=== PATIENT | male | born 1945 | race Caucasian/White ===

== ENCOUNTER 2017-09-01 22:00 | Inpatient (IN) ==
[2017-09-01] MEDS ORDERED: ASPIRIN 325 MG TABLET PO STA (22:20)
[2017-09-01] MEDS ORDERED: DILTIAZEM 50 MG/10 ML VIAL IV STA (22:20)
[2017-09-01] MEDS ORDERED: ALBUTEROL/IPRATROPIUM 3 ML NEB RESP TX STA (22:20)
[2017-09-01] MEDS ORDERED: NITROGLYCERIN 2% OINT 1 INCH/GM PACK TOP STA (22:20)
[2017-09-01] MEDS ORDERED: ONDANSETRON 4 MG/2 ML VIAL IV STA (22:20)
[2017-09-01] MEDS ORDERED: ONDANSETRON 4 MG/2 ML VIAL ONE (22:36)
[2017-09-01] MEDS ORDERED: NITROGLYCERIN 2% OINT 1 INCH/GM PACK TOP ONE (22:36)
[2017-09-01] MEDS ORDERED: ASPIRIN 325 MG TABLET ONE (22:37)
[2017-09-01] MEDS ORDERED: DILTIAZEM 50 MG/10 ML VIAL IV ONE (22:37)
[2017-09-01] MEDS ORDERED: FUROSEMIDE 40 MG/4 ML VIAL IV STA (22:44)
[2017-09-01] MEDS ORDERED: FUROSEMIDE 100 MG/10 ML VIAL ONE (23:12)
[2017-09-01 23:23] LABS: Basophils % 0.5 % (0.0-0.8); Eosinophils % 0.1 % (0.00-10.9); Hematocrit 45.7 VOL% (42.0-52.0); Hemoglobin 15.2 GM/DL (14.0-18.0); Immature Granulocytes % 0.7 %; Immature Granulocytes Absolute 0.06 #; Lymphocytes # 0.8 10*3/uL (1.4-4.0); Lymphocytes % 9.7 % (21.2-54.2); Mean Corpuscular HGB Conc 33.3 GM/DL (32-36); Mean Corpuscular Hemoglobin 30 PG (27-34); Mean Corpuscular Volume 90.7 FL (87-102); Mean Platelet Volume 11.1 FL (9.6-12.0); Monocytes # 0.7 10*3/uL (0.11-0.8); Monocytes % 8.9 % (1.7-12.7); Neutrophils # 6.6 10*3/uL (1.4-7.4); Neutrophils % 80.1 % (38.7-73.9); Platelet Count 193 T/CUMM (130-400); Red Blood Count 5.04 MC/CUMM (3.8-5.5); Red Cell Distribution Width 14.7 % (9.3-17.3); White Blood Count 8.2 T/CUMM (4-12)
[2017-09-01 23:33] LABS: INR 1.2; PT Patient Result 12.1 SECS; Partial Thromboplastin Time 27.3 SECS (0-40)
[2017-09-02 00:01] LABS: Alanine Aminotransferase 37 U/L (16-61); Albumin 3.4 G/DL (3.4-5.0); Alkaline Phosphatase 87 U/L (45-117); Aspartate Amino Transferase 62 U/L (0-37); Blood Urea Nitrogen 18 MG/DL (7-18); Calcium 8.3 MG/DL (8.5-10.1); Glucose 238 MG/DL (74-106); Osmolality,Calculated 277.2 MOS/KG (273-304); Potassium 5.3 MMOL/L (3.5-5.1); Sodium 134 MMOL/L (136-145); Total Protein 6.8 G/DL (6.4-8.3)
[2017-09-02 00:02] LABS: Troponin I Only 0.065 NG/ML (0.00-0.045)
[2017-09-02] MEDS ORDERED: SODIUM CHLORIDE 0.9% 0 ML IV ONE (00:12)
[2017-09-02] MEDS ORDERED: DILTIAZEM 100 MG VIAL.ADD IV ONE (00:12)
[2017-09-02] MEDS ORDERED: SODIUM CHLORIDE 0.9% 100 ML IV ONE (00:13)
[2017-09-02] MEDS: DILTIAZEM INJ 100 MG in SODIUM CHLORIDE 0.9% 100 ML IV SCH (00:22)
[2017-09-02 00:39] LABS: Apearance,Urine CLEAR (Clear); Bilirubin,Urine Negative (Negative); Blood, Urine Negative (Negative); Glucose,Urine (UA) 150 mg/dL (Negative); Hyaline Casts,Urine 7 /LPF (0-3); Ketones,Urine 5 mg/dL (Negative); Mucus,Urine Occasional /LPF (Occasional); Nitrite,Urine Negative (Negative); Protein,Urine 100 MG/DL; RBC,Urine 1 /HPF (0-4); Squamous Epithelial Cell,Urine Occasional /HPF (0-10); Urine Color Yellow (Yellow); Urine Specific Gravity 1.009 (1.001-1.035); Urine Urobilinogen < 2.0 EU/DL (0.2-1.0); WBC,Urine 2 /HPF (0-6)
[2017-09-02] MEDS ORDERED: DEXTROSE 50% 25 GM/50 ML VIAL IV PRN (02:10)
[2017-09-02] MEDS ORDERED: GLUCAGON 1 MG VIAL IM PRN (02:10)
[2017-09-02] MEDS ORDERED: ONDANSETRON 4 MG/2 ML VIAL IV PRN (02:10)
[2017-09-02 05:44] LABS: Basophils % 0.3 % (0.0-0.8); Eosinophils % 0.4 % (0.00-10.9); Hematocrit 41.8 VOL% (42.0-52.0); Hemoglobin 14.2 GM/DL (14.0-18.0); Immature Granulocytes % 0.6 %; Immature Granulocytes Absolute 0.04 #; Lymphocytes % 14.3 % (21.2-54.2); Mean Corpuscular Hemoglobin 30 PG (27-34); Mean Corpuscular Volume 88.6 FL (87-102); Mean Platelet Volume 10.3 FL (9.6-12.0); Monocytes # 0.8 10*3/uL (0.11-0.8); Monocytes % 11.5 % (1.7-12.7); Neutrophils # 4.9 10*3/uL (1.4-7.4); Neutrophils % 72.9 % (38.7-73.9); Platelet Count 227 T/CUMM (130-400); Red Blood Count 4.72 MC/CUMM (3.8-5.5); Red Cell Distribution Width 14.6 % (9.3-17.3); White Blood Count 6.7 T/CUMM (4-12)
[2017-09-02 06:13] LABS: Troponin I Only 0.077 NG/ML (0.00-0.045)
[2017-09-02 06:30] LABS: Blood Urea Nitrogen 17 MG/DL (7-18); Calcium 8.1 MG/DL (8.5-10.1); Glucose 170 MG/DL (74-106); Osmolality,Calculated 278.8 MOS/KG (273-304); Sodium 137 MMOL/L (136-145)
[2017-09-02] MEDS: NITROGLYCERIN 2% OINT 1 INCH/GM PACK TOP SCH ×3 (06:32→17:19)
[2017-09-02] MEDS: INSULIN REGULAR 100 UNIT/ML SUBCUT SCH ×3 (06:32→17:18)
[2017-09-02 06:38] LABS: Troponin I Only 0.071 NG/ML (0.00-0.045)
[2017-09-02] MEDS: FUROSEMIDE 40 MG/4 ML VIAL IV SCH ×2 (07:17→17:18)
[2017-09-02] MEDS: PANTOPRAZOLE 40 MG TABLET PO SCH (08:39)
[2017-09-02] MEDS ORDERED: POTASSIUM CHLORIDE 20 MEQ TABLET PO SCH (09:00)
[2017-09-02] MEDS ORDERED: ASPIRIN 325 MG TABLET PO SCH (09:00)
[2017-09-02] MEDS ORDERED: NON-FORMULARY MEDICATION (Omeprazole [Prilosec] 40 MG) PO SCH (11:45)
[2017-09-02] MEDS: MAGNESIUM CHLORIDE 64 MG TABLET PO SCH (11:50)
[2017-09-02] MEDS: ROSUVASTATIN 20 MG TABLET PO SCH (11:50)
[2017-09-02] MEDS: APIXABAN 2.5 MG TABLET PO SCH ×2 (11:50→20:18)
[2017-09-02] MEDS: METOPROLOL SUCCINATE XL 50 MG TABLET PO SCH ×2 (11:51→20:18)
[2017-09-02] MEDS: POTASSIUM CHLORIDE 20 MEQ TABLET PO SCH (11:55)
[2017-09-02] MEDS ORDERED: AMIODARONE INJ 150 MG in DEXTROSE 5% 100 ML IV ONE (12:00)
[2017-09-02] MEDS ORDERED: AMIODARONE 200 MG TABLET PO SCH (12:00)
[2017-09-02] MEDS ORDERED: AMIODARONE INJ 450 MG in DEXTROSE 5% 241 ML IV SCH ×2 (12:00→18:00)
[2017-09-02] MEDS ORDERED: FUROSEMIDE 40 MG TABLET PO SCH (12:00)
[2017-09-02] MEDS ORDERED: MAGNESIUM SULF RIDER 4 GM in PREMIX 1 EACH IV PRN (12:27)
[2017-09-02] MEDS ORDERED: MAGNESIUM SULF RIDER 2 GM in PREMIX 1 EACH IV PRN (12:27)
[2017-09-02] MEDS ORDERED: AZITHROMYCIN INJ 500 MG in SODIUM CHLORIDE 0.9% 250 ML IV SCH (12:30)
[2017-09-02] MEDS ORDERED: MAGNESIUM HYDROXIDE SUSP 30 ML UDCUP PO PRN (12:35)
[2017-09-02] MEDS ORDERED: diphenhydrAMINE CAP 25 MG CAPSULE PO PRN (12:35)
[2017-09-02] MEDS: AMOXICILLIN 500 MG CAPSULE PO SCH ×2 (12:52→20:17)
[2017-09-02] MEDS: INSULIN GLARGINE 100 UNIT/ML SUBCUT SCH (17:18)
[2017-09-02] MEDS: MELATONIN 3 MG TABLET PO SCH (20:17)
[2017-09-02] MEDS ORDERED: ALBUTEROL 2.5 MG/3 ML NEB RESP TX PRN (22:26)
[2017-09-02] MEDS ORDERED: LEVALBUTEROL 1.25 MG/3 ML NEB RESP TX PRN (23:00)
[2017-09-02] MEDS ORDERED: FUROSEMIDE 40 MG/4 ML VIAL IV ONE (23:06)
[2017-09-02] MEDS ORDERED: BENZONATATE 100 MG CAPSULE PO PRN (23:06)
[2017-09-02] MEDS ORDERED: methylPREDNISolone SOD SUC 40 MG/1 ML VIAL IV ONE (23:54)
[2017-09-03] MEDS: DILTIAZEM INJ 100 MG in SODIUM CHLORIDE 0.9% 100 ML IV SCH ×3 (00:28→23:22)
[2017-09-03 00:41] LABS: Allen Test Positive; Pt O2 Delivery Device Venturi Mask
[2017-09-03 00:42] LABS: ABG Base Excess 3.3 MMOL/L (-2.5-2.5); ABG HCO3 30.2 MMOL/L (20-26); ABG Oxygen Saturation 88.6 % (95-100); ABG PCO2 54.3 MM HG (35-48); ABG PH 7.363 (7.35-7.45); ABG PO2 60.4 MM HG (80-95); ABG TCO2 31.9 MMOL/L (23-27)
[2017-09-03] MEDS: NITROGLYCERIN 2% OINT 1 INCH/GM PACK TOP SCH ×3 (00:48→11:49)
[2017-09-03] MEDS: INSULIN REGULAR 100 UNIT/ML SUBCUT SCH ×4 (01:12→18:03)
[2017-09-03] MEDS ORDERED: DILTIAZEM 30 MG TABLET PO SCH (01:30)
[2017-09-03] MEDS ORDERED: DIGOXIN 0.5 MG/2 ML AMP IV ONE (01:40)
[2017-09-03] MEDS ORDERED: FUROSEMIDE 40 MG/4 ML VIAL IV ONE (01:45)
[2017-09-03] MEDS ORDERED: LORazepam 2 MG/1 ML VIAL IV ONE (01:51)
[2017-09-03 02:00] LABS: Basophils % 0.1 % (0.0-0.8); Hematocrit 46.4 VOL% (42.0-52.0); Hemoglobin 15.5 GM/DL (14.0-18.0); Immature Granulocytes % 0.7 %; Lymphocytes # 0.4 10*3/uL (1.4-4.0); Lymphocytes % 3.1 % (21.2-54.2); Mean Corpuscular HGB Conc 33.4 GM/DL (32-36); Mean Corpuscular Hemoglobin 31 PG (27-34); Mean Corpuscular Volume 91.7 FL (87-102); Mean Platelet Volume 10.1 FL (9.6-12.0); Monocytes # 1.4 10*3/uL (0.11-0.8); Monocytes % 10.2 % (1.7-12.7); NRBC # 0.04 10*3/uL; Neutrophils # 11.5 10*3/uL (1.4-7.4); Neutrophils % 85.9 % (38.7-73.9); Platelet Count 210 T/CUMM (130-400); Red Blood Count 5.06 MC/CUMM (3.8-5.5); Red Cell Distribution Width 14.8 % (9.3-17.3); White Blood Count 13.4 T/CUMM (4-12)
[2017-09-03 02:29] LABS: Calcium 8.2 MG/DL (8.5-10.1); Osmolality,Calculated 276.8 MOS/KG (273-304); Potassium 4.2 MMOL/L (3.5-5.1); Risk Ratio 1.57; VLDL CHOLESTEROL 7.2 MG/DL
[2017-09-03] MEDS ORDERED: VECURONIUM 10 MG VIAL IV ONE ×2 (03:17→03:35)
[2017-09-03] MEDS ORDERED: ETOMIDATE 20 MG/10 ML VIAL IV ONE ×2 (03:18→03:35)
[2017-09-03] MEDS ORDERED: PROPOFOL 1,000 MG/100 ML BOTTLE IV ONE (03:34)
[2017-09-03] MEDS ORDERED: fentaNYL 100 MCG/2 ML VIAL IV PRN (03:35)
[2017-09-03] MEDS: PROPOFOL 1,000 MG/100 ML BOTTLE IV SCH ×3 (03:40→21:14)
[2017-09-03 03:47] LABS: Troponin I Only 0.093 NG/ML (0.00-0.045)
[2017-09-03 03:47] LABS: Band Neutrophils 10 % (0-10); Lymphocytes 5 % (20-55); Segmented Neutrophils 79 % (50-85); Total Cells Counted 100
[2017-09-03 03:48] LABS: Polychromasia Slight
[2017-09-03] MEDS: PHENYLEPHRINE DRIP 40 MG/250 ML PREMIX IV PRN ×8 (04:05→21:14)
[2017-09-03 04:43] LABS: Allen Test Positive; Pt O2 Delivery Device Ventilator
[2017-09-03 04:45] LABS: ABG HCO3 27.1 MMOL/L (20-26); ABG Oxygen Saturation 99.3 % (95-100); ABG PCO2 35.1 MM HG (35-48); ABG PH 7.479 (7.35-7.45); ABG TCO2 21.8 MMOL/L (23-27)
[2017-09-03] MEDS ORDERED: methylPREDNISolone SOD SUC 40 MG/1 ML VIAL IV ONE (06:29)
[2017-09-03] MEDS: ROSUVASTATIN 20 MG TABLET PO SCH (08:43)
[2017-09-03] MEDS: APIXABAN 2.5 MG TABLET PO SCH ×2 (08:43→20:24)
[2017-09-03] MEDS: POTASSIUM CHLORIDE 20 MEQ TABLET PO SCH (08:43)
[2017-09-03] MEDS: MAGNESIUM CHLORIDE 64 MG TABLET PO SCH (08:43)
[2017-09-03] MEDS: METOPROLOL SUCCINATE XL 50 MG TABLET PO SCH ×2 (08:44→21:18)
[2017-09-03] MEDS: PANTOPRAZOLE 40 MG TABLET PO SCH (08:44)
[2017-09-03] MEDS: ASPIRIN EC 81 MG TABLET PO SCH (08:44)
[2017-09-03] MEDS: AMOXICILLIN 500 MG CAPSULE PO SCH ×2 (08:44→20:24)
[2017-09-03] MEDS: LEVOFLOXACIN INJ 500 MG in PREMIX 1 EACH IV SCH (08:48)
[2017-09-03] MEDS ORDERED: INSULIN DETEMIR 100 UNIT/ML SUBCUT SCH (09:00)
[2017-09-03 09:18] LABS: ABG Base Excess 0.8 MMOL/L (-2.5-2.5); ABG HCO3 25.2 MMOL/L (20-26); ABG Oxygen Saturation 99.2 % (95-100); ABG PCO2 37.5 MM HG (35-48); ABG PH 7.429 (7.35-7.45); ABG TCO2 20.7 MMOL/L (23-27)
[2017-09-03] MEDS: FUROSEMIDE 40 MG/4 ML VIAL IV SCH (09:31)
[2017-09-03] MEDS: methylPREDNISolone SOD SUC 40 MG/1 ML VIAL IV SCH ×2 (09:32→20:25)
[2017-09-03] MEDS ORDERED: LIDOCAINE 2% TOP JELLY 20 ML VIAL INTRAURETH ONE (10:04)
[2017-09-03 12:05] LABS: ABG Base Excess 0.2 MMOL/L (-2.5-2.5); ABG HCO3 23.6 MMOL/L (20-26); ABG Oxygen Saturation 98.9 % (95-100); ABG PCO2 34.9 MM HG (35-48); ABG PH 7.448 (7.35-7.45); ABG PO2 145.1 MM HG (80-95); ABG TCO2 24.7 MMOL/L (23-27)
[2017-09-03] MEDS: LEVALBUTEROL 1.25 MG/3 ML NEB RESP TX SCH ×2 (14:09→19:28)
[2017-09-03] MEDS: IPRATROPIUM 500 MCG/2.5 ML NEB RESP TX SCH ×2 (14:09→19:28)
[2017-09-03] MEDS: DILTIAZEM 60 MG TABLET PO SCH ×2 (15:01→20:24)
[2017-09-03] MEDS ORDERED: FUROSEMIDE 40 MG/4 ML VIAL IV SCH (16:00)
[2017-09-03] MEDS: INSULIN GLARGINE 100 UNIT/ML SUBCUT SCH (18:00)
[2017-09-03] MEDS: MELATONIN 3 MG TABLET PO SCH (20:25)
[2017-09-04] MEDS: IPRATROPIUM 500 MCG/2.5 ML NEB RESP TX SCH ×4 (00:42→19:44)
[2017-09-04] MEDS: LEVALBUTEROL 1.25 MG/3 ML NEB RESP TX SCH ×4 (00:42→19:44)
[2017-09-04] MEDS: INSULIN REGULAR 100 UNIT/ML SUBCUT SCH ×4 (00:45→17:44)
[2017-09-04] MEDS: PHENYLEPHRINE DRIP 40 MG/250 ML PREMIX IV PRN ×4 (00:52→19:40)
[2017-09-04] MEDS: PROPOFOL 1,000 MG/100 ML BOTTLE IV SCH ×4 (02:39→23:17)
[2017-09-04 03:54] LABS: ABG Base Excess 1.8 MMOL/L (-2.5-2.5); ABG HCO3 25.6 MMOL/L (20-26); ABG Oxygen Saturation 96.8 % (95-100); ABG PCO2 37.7 MM HG (35-48); ABG PO2 90.7 MM HG (80-95); ABG TCO2 26.8 MMOL/L (23-27)
[2017-09-04] MEDS: LEVOFLOXACIN INJ 500 MG in PREMIX 1 EACH IV SCH (04:40)
[2017-09-04 04:46] LABS: Basophils % 0.2 % (0.0-0.8); Hematocrit 47.1 VOL% (42.0-52.0); Hemoglobin 16.2 GM/DL (14.0-18.0); Immature Granulocytes % 1.8 %; Immature Granulocytes Absolute 0.27 #; Lymphocytes # 0.7 10*3/uL (1.4-4.0); Lymphocytes % 4.2 % (21.2-54.2); Mean Corpuscular HGB Conc 34.4 GM/DL (32-36); Mean Corpuscular Hemoglobin 31 PG (27-34); Mean Corpuscular Volume 88.9 FL (87-102); Mean Platelet Volume 11.1 FL (9.6-12.0); Monocytes # 0.5 10*3/uL (0.11-0.8); Monocytes % 2.9 % (1.7-12.7); NRBC # 0.08 10*3/uL; Neutrophils # 13.9 10*3/uL (1.4-7.4); Neutrophils % 90.9 % (38.7-73.9); Platelet Count 180 T/CUMM (130-400); Red Cell Distribution Width 14.9 % (9.3-17.3); White Blood Count 15.3 T/CUMM (4-12)
[2017-09-04 05:23] LABS: Calcium 8.1 MG/DL (8.5-10.1); Osmolality,Calculated 291.1 MOS/KG (273-304); Potassium 5.1 MMOL/L (3.5-5.1)
[2017-09-04 07:13] LABS: Band Neutrophils 4 % (0-10); Hypochromasia Slight; Lymphocytes 4 % (20-55); Platelet Estimate Adequate; Segmented Neutrophils 91 % (50-85); Total Cells Counted 100
[2017-09-04] MEDS: methylPREDNISolone SOD SUC 40 MG/1 ML VIAL IV SCH ×2 (08:15→21:11)
[2017-09-04] MEDS: APIXABAN 2.5 MG TABLET PO SCH ×2 (08:16→21:11)
[2017-09-04] MEDS: METOPROLOL SUCCINATE XL 50 MG TABLET PO SCH ×2 (08:16→21:11)
[2017-09-04] MEDS: ROSUVASTATIN 20 MG TABLET PO SCH (08:16)
[2017-09-04] MEDS: DILTIAZEM 60 MG TABLET PO SCH ×3 (08:16→21:10)
[2017-09-04] MEDS: MAGNESIUM CHLORIDE 64 MG TABLET PO SCH (08:16)
[2017-09-04] MEDS: ASPIRIN EC 81 MG TABLET PO SCH (08:17)
[2017-09-04] MEDS: POTASSIUM CHLORIDE 20 MEQ TABLET PO SCH (08:17)
[2017-09-04] MEDS: metOLazone 5 MG TABLET PO SCH (08:17)
[2017-09-04] MEDS: PANTOPRAZOLE 40 MG TABLET PO SCH (08:17)
[2017-09-04] MEDS: FUROSEMIDE INJ 200 MG in SODIUM CHLORIDE 0.9% 80 ML IV SCH (09:29)
[2017-09-04 09:49] LABS: ABG Base Excess 4.1 MMOL/L (-2.5-2.5); ABG HCO3 27.5 MMOL/L (20-26); ABG Oxygen Saturation 97.5 % (95-100); ABG PCO2 37.2 MM HG (35-48); ABG PH 7.486 (7.35-7.45); ABG TCO2 28.6 MMOL/L (23-27)
[2017-09-04] MEDS: INSULIN GLARGINE 100 UNIT/ML SUBCUT SCH (17:44)
[2017-09-04] MEDS: MELATONIN 3 MG TABLET PO SCH (21:17)
[2017-09-05] MEDS: IPRATROPIUM 500 MCG/2.5 ML NEB RESP TX SCH ×4 (00:33→19:55)
[2017-09-05] MEDS: LEVALBUTEROL 1.25 MG/3 ML NEB RESP TX SCH ×4 (00:33→19:55)
[2017-09-05] MEDS: INSULIN REGULAR 100 UNIT/ML SUBCUT SCH ×4 (01:01→18:27)
[2017-09-05] MEDS: LEVOFLOXACIN INJ 500 MG in PREMIX 1 EACH IV SCH (03:31)
[2017-09-05 04:00] LABS: ABG Base Excess 12.4 MMOL/L (-2.5-2.5); ABG HCO3 36.2 MMOL/L (20-26); ABG Oxygen Saturation 96.1 % (95-100); ABG PCO2 42.2 MM HG (35-48); ABG PH 7.546 (7.35-7.45); ABG PO2 78.9 MM HG (80-95); ABG TCO2 29.8 MMOL/L (23-27)
[2017-09-05] MEDS: FUROSEMIDE INJ 200 MG in SODIUM CHLORIDE 0.9% 80 ML IV SCH (05:06)
[2017-09-05 05:07] LABS: Basophils % 0.2 % (0.0-0.8); Hematocrit 48.6 VOL% (42.0-52.0); Hemoglobin 16.3 GM/DL (14.0-18.0); Immature Granulocytes % 0.9 %; Immature Granulocytes Absolute 0.14 #; Lymphocytes # 0.3 10*3/uL (1.4-4.0); Lymphocytes % 1.9 % (21.2-54.2); Mean Corpuscular HGB Conc 33.5 GM/DL (32-36); Mean Corpuscular Hemoglobin 30 PG (27-34); Mean Platelet Volume 10.8 FL (9.6-12.0); Monocytes # 0.5 10*3/uL (0.11-0.8); Monocytes % 3.2 % (1.7-12.7); NRBC # 0.06 10*3/uL; Neutrophils # 14.2 10*3/uL (1.4-7.4); Neutrophils % 93.8 % (38.7-73.9); Platelet Count 208 T/CUMM (130-400); Red Blood Count 5.52 MC/CUMM (3.8-5.5); Red Cell Distribution Width 14.3 % (9.3-17.3); White Blood Count 15.1 T/CUMM (4-12)
[2017-09-05 05:36] LABS: Calcium 8.5 MG/DL (8.5-10.1); Osmolality,Calculated 306.4 MOS/KG (273-304); Potassium 3.4 MMOL/L (3.5-5.1)
[2017-09-05 06:35] LABS: Hypochromasia 2+; Lymphocytes 3 % (20-55); Platelet Estimate Adequate; Segmented Neutrophils 91 % (50-85); Total Cells Counted 100
[2017-09-05] MEDS: MAGNESIUM CHLORIDE 64 MG TABLET PO SCH (09:11)
[2017-09-05] MEDS: ROSUVASTATIN 20 MG TABLET PO SCH (09:11)
[2017-09-05] MEDS: PANTOPRAZOLE 40 MG TABLET PO SCH (09:12)
[2017-09-05] MEDS: APIXABAN 2.5 MG TABLET PO SCH ×2 (09:12→21:15)
[2017-09-05] MEDS: DILTIAZEM 60 MG TABLET PO SCH ×3 (09:12→21:14)
[2017-09-05] MEDS: METOPROLOL SUCCINATE XL 50 MG TABLET PO SCH ×2 (09:12→21:15)
[2017-09-05] MEDS: methylPREDNISolone SOD SUC 40 MG/1 ML VIAL IV SCH ×2 (09:12→21:18)
[2017-09-05] MEDS: metOLazone 5 MG TABLET PO SCH (09:12)
[2017-09-05] MEDS: ASPIRIN EC 81 MG TABLET PO SCH (09:12)
[2017-09-05] MEDS: POTASSIUM CHLORIDE 20 MEQ TABLET PO SCH (09:12)
[2017-09-05] MEDS ORDERED: GLUCAGON 1 MG VIAL IM PRN (09:14)
[2017-09-05] MEDS ORDERED: DEXTROSE 50% 25 GM/50 ML VIAL IV PRN (09:14)
[2017-09-05 09:17] LABS: ABG HCO3 37.9 MMOL/L (20-26); ABG Oxygen Saturation 95.7 % (95-100); ABG PCO2 45.3 MM HG (35-48); ABG PH 7.542 (7.35-7.45); ABG PO2 77.3 MM HG (80-95); ABG TCO2 31.9 MMOL/L (23-27)
[2017-09-05] MEDS: PHENYLEPHRINE DRIP 40 MG/250 ML PREMIX IV PRN (09:32)
[2017-09-05] MEDS: PROPOFOL 1,000 MG/100 ML BOTTLE IV SCH (14:07)
[2017-09-05] MEDS: INSULIN GLARGINE 100 UNIT/ML SUBCUT SCH (18:27)
[2017-09-05] MEDS: POTASSIUM CHLORIDE 20 MEQ TABLET PO PRN ×2 (21:15→23:17)
[2017-09-05] MEDS: MELATONIN 3 MG TABLET PO SCH (21:32)
[2017-09-06] MEDS: INSULIN REGULAR 100 UNIT/ML SUBCUT SCH ×5 (00:25→23:45)
[2017-09-06] MEDS: LEVALBUTEROL 1.25 MG/3 ML NEB RESP TX SCH ×4 (01:31→19:33)
[2017-09-06] MEDS: IPRATROPIUM 500 MCG/2.5 ML NEB RESP TX SCH ×4 (01:31→19:32)
[2017-09-06] MEDS: POTASSIUM CHLORIDE 20 MEQ TABLET PO PRN (01:45)
[2017-09-06] MEDS: FUROSEMIDE INJ 200 MG in SODIUM CHLORIDE 0.9% 80 ML IV SCH (03:18)
[2017-09-06] MEDS: LEVOFLOXACIN INJ 500 MG in PREMIX 1 EACH IV SCH (03:19)
[2017-09-06 04:09] LABS: ABG Base Excess 15.7 MMOL/L (-2.5-2.5); ABG HCO3 39.8 MMOL/L (20-26); ABG Oxygen Saturation 95.3 % (95-100); ABG PCO2 48.9 MM HG (35-48); ABG PH 7.537 (7.35-7.45); ABG PO2 75.1 MM HG (80-95); ABG TCO2 33.9 MMOL/L (23-27)
[2017-09-06 05:07] LABS: Basophils % 0.3 % (0.0-0.8); Hematocrit 49.1 VOL% (42.0-52.0); Hemoglobin 16.5 GM/DL (14.0-18.0); Immature Granulocytes % 1.4 %; Immature Granulocytes Absolute 0.17 #; Lymphocytes # 0.4 10*3/uL (1.4-4.0); Lymphocytes % 3.5 % (21.2-54.2); Mean Corpuscular HGB Conc 33.6 GM/DL (32-36); Mean Corpuscular Hemoglobin 30 PG (27-34); Mean Corpuscular Volume 88.5 FL (87-102); Mean Platelet Volume 10.9 FL (9.6-12.0); Monocytes # 0.6 10*3/uL (0.11-0.8); Monocytes % 4.9 % (1.7-12.7); NRBC # 0.05 10*3/uL; Neutrophils # 11.1 10*3/uL (1.4-7.4); Neutrophils % 89.9 % (38.7-73.9); Platelet Count 188 T/CUMM (130-400); Red Blood Count 5.55 MC/CUMM (3.8-5.5); Red Cell Distribution Width 14.2 % (9.3-17.3); White Blood Count 12.4 T/CUMM (4-12)
[2017-09-06 05:33] LABS: Band Neutrophils 1 % (0-10); Lymphocytes 2 % (20-55); Segmented Neutrophils 94 % (50-85); Total Cells Counted 100
[2017-09-06 05:34] LABS: Hypochromasia 1+; Microcytosis Slight; Platelet Estimate Adequate
[2017-09-06 05:41] LABS: Calcium 8.8 MG/DL (8.5-10.1); Potassium 3.5 MMOL/L (3.5-5.1); Prealbumin 12.3 MG/DL (20-40)
[2017-09-06] MEDS: PROPOFOL 1,000 MG/100 ML BOTTLE IV SCH ×2 (06:23→22:21)
[2017-09-06] MEDS: POTASSIUM CHLORIDE 20 MEQ TABLET PO SCH (09:15)
[2017-09-06] MEDS: methylPREDNISolone SOD SUC 40 MG/1 ML VIAL IV SCH ×2 (09:15→20:37)
[2017-09-06] MEDS: ASPIRIN EC 81 MG TABLET PO SCH (09:15)
[2017-09-06] MEDS: ROSUVASTATIN 20 MG TABLET PO SCH (09:15)
[2017-09-06] MEDS: APIXABAN 2.5 MG TABLET PO SCH ×2 (09:15→20:33)
[2017-09-06] MEDS: PANTOPRAZOLE 40 MG TABLET PO SCH (09:16)
[2017-09-06] MEDS: MAGNESIUM CHLORIDE 64 MG TABLET PO SCH (09:16)
[2017-09-06] MEDS: DILTIAZEM 60 MG TABLET PO SCH ×3 (09:16→20:34)
[2017-09-06] MEDS: METOPROLOL SUCCINATE XL 50 MG TABLET PO SCH ×2 (09:16→20:33)
[2017-09-06] MEDS: INSULIN GLARGINE 100 UNIT/ML SUBCUT SCH (18:09)
[2017-09-06] MEDS: MELATONIN 3 MG TABLET PO SCH (20:36)
[2017-09-07] MEDS: IPRATROPIUM 500 MCG/2.5 ML NEB RESP TX SCH ×4 (01:33→19:25)
[2017-09-07] MEDS: LEVALBUTEROL 1.25 MG/3 ML NEB RESP TX SCH ×4 (01:33→19:25)
[2017-09-07] MEDS: FUROSEMIDE INJ 200 MG in SODIUM CHLORIDE 0.9% 80 ML IV SCH (02:45)
[2017-09-07] MEDS: LEVOFLOXACIN INJ 500 MG in PREMIX 1 EACH IV SCH (03:19)
[2017-09-07 04:30] LABS: Basophils % 0.2 % (0.0-0.8); Hematocrit 48.8 VOL% (42.0-52.0); Hemoglobin 16.8 GM/DL (14.0-18.0); Immature Granulocytes % 0.5 %; Immature Granulocytes Absolute 0.06 #; Lymphocytes # 0.4 10*3/uL (1.4-4.0); Lymphocytes % 3.3 % (21.2-54.2); Mean Corpuscular HGB Conc 34.4 GM/DL (32-36); Mean Corpuscular Hemoglobin 30 PG (27-34); Mean Corpuscular Volume 87.5 FL (87-102); Mean Platelet Volume 10.9 FL (9.6-12.0); Monocytes # 0.8 10*3/uL (0.11-0.8); Monocytes % 6.9 % (1.7-12.7); NRBC # 0.07 10*3/uL; Neutrophils # 10.1 10*3/uL (1.4-7.4); Neutrophils % 89.1 % (38.7-73.9); Platelet Count 200 T/CUMM (130-400); Red Blood Count 5.58 MC/CUMM (3.8-5.5); Red Cell Distribution Width 14.4 % (9.3-17.3); White Blood Count 11.3 T/CUMM (4-12)
[2017-09-07 04:52] LABS: Lymphocytes 3 % (20-55); Nucleated Red Blood Cells 2 (0-5); Segmented Neutrophils 91 % (50-85); Total Cells Counted 100
[2017-09-07 04:53] LABS: Hypochromasia 1+
[2017-09-07 05:01] LABS: Calcium 8.5 MG/DL (8.5-10.1); Potassium 3.4 MMOL/L (3.5-5.1)
[2017-09-07] MEDS: INSULIN REGULAR 100 UNIT/ML SUBCUT SCH ×4 (06:06→23:59)
[2017-09-07] MEDS: POTASSIUM CHLORIDE 20 MEQ TABLET PO PRN ×2 (06:40→10:22)
[2017-09-07] MEDS: DILTIAZEM 60 MG TABLET PO SCH ×3 (08:14→22:14)
[2017-09-07] MEDS: methylPREDNISolone SOD SUC 40 MG/1 ML VIAL IV SCH (08:14)
[2017-09-07] MEDS: METOPROLOL SUCCINATE XL 50 MG TABLET PO SCH ×2 (08:14→22:14)
[2017-09-07] MEDS: APIXABAN 2.5 MG TABLET PO SCH ×2 (08:15→22:14)
[2017-09-07] MEDS: ROSUVASTATIN 20 MG TABLET PO SCH (08:15)
[2017-09-07] MEDS: POTASSIUM CHLORIDE 20 MEQ TABLET PO SCH (08:15)
[2017-09-07] MEDS: PANTOPRAZOLE 40 MG TABLET PO SCH (08:15)
[2017-09-07] MEDS: MAGNESIUM CHLORIDE 64 MG TABLET PO SCH (08:15)
[2017-09-07] MEDS: ASPIRIN CHEW 81 MG TABLET PO SCH (08:16)
[2017-09-07] MEDS: PROPOFOL 1,000 MG/100 ML BOTTLE IV SCH ×2 (08:16→17:36)
[2017-09-07 08:21] LABS: ABG Base Excess 21.3 MMOL/L (-2.5-2.5); ABG HCO3 46.6 MMOL/L (20-26); ABG Oxygen Saturation 93.9 % (95-100); ABG PCO2 49.1 MM HG (35-48); ABG PO2 69.8 MM HG (80-95); ABG TCO2 48.1 MMOL/L (23-27); Allen Test Positive; Pt O2 Delivery Device Ventilator
[2017-09-07 08:25] LABS: ABG PH 7.595 (7.35-7.45)
[2017-09-07] MEDS: FUROSEMIDE 40 MG TABLET PO SCH (16:24)
[2017-09-07] MEDS: INSULIN GLARGINE 100 UNIT/ML SUBCUT SCH (16:25)
[2017-09-07] MEDS: ROSUVASTATIN 10 MG TABLET PO SCH (22:14)
[2017-09-07] MEDS: AMIODARONE 200 MG TABLET PO SCH (22:15)
[2017-09-08] MEDS: IPRATROPIUM 500 MCG/2.5 ML NEB RESP TX SCH ×4 (00:47→19:45)
[2017-09-08] MEDS: LEVALBUTEROL 1.25 MG/3 ML NEB RESP TX SCH ×4 (00:47→19:45)
[2017-09-08] MEDS: LEVOFLOXACIN INJ 250 MG in PREMIX 1 EACH IV SCH (03:51)
[2017-09-08] MEDS: PROPOFOL 1,000 MG/100 ML BOTTLE IV SCH (03:55)
[2017-09-08 04:40] LABS: Basophils # 0.1 10*3/uL (0.0-0.2); Basophils % 0.4 % (0.0-0.8); Hematocrit 56.1 VOL% (42.0-52.0); Hemoglobin 18.7 GM/DL (14.0-18.0); Immature Granulocytes % 0.7 %; Immature Granulocytes Absolute 0.11 #; Lymphocytes # 0.6 10*3/uL (1.4-4.0); Mean Corpuscular HGB Conc 33.3 GM/DL (32-36); Mean Corpuscular Hemoglobin 30 PG (27-34); Mean Corpuscular Volume 89.2 FL (87-102); Mean Platelet Volume 10.9 FL (9.6-12.0); Monocytes # 1.8 10*3/uL (0.11-0.8); Monocytes % 11.8 % (1.7-12.7); NRBC # 0.12 10*3/uL; Neutrophils % 83.1 % (38.7-73.9); Platelet Count 199 T/CUMM (130-400); Red Blood Count 6.29 MC/CUMM (3.8-5.5); Red Cell Distribution Width 15.5 % (9.3-17.3); White Blood Count 15.6 T/CUMM (4-12)
[2017-09-08 04:44] LABS: ABG Base Excess 16.7 MMOL/L (-2.5-2.5); ABG Oxygen Saturation 96.1 % (95-100); ABG PCO2 48.7 MM HG (35-48); ABG PH 7.552 (7.35-7.45); ABG PO2 78.5 MM HG (80-95); ABG TCO2 33.7 MMOL/L (23-27)
[2017-09-08 04:57] LABS: Calcium 7.8 MG/DL (8.5-10.1); Osmolality,Calculated 333.3 MOS/KG (273-304); Potassium 2.9 MMOL/L (3.5-5.1)
[2017-09-08 05:05] LABS: Lymphocytes 7 % (20-55); Segmented Neutrophils 86 % (50-85); Total Cells Counted 100
[2017-09-08 05:07] LABS: Hypochromasia 1+
[2017-09-08 05:08] LABS: Platelet Estimate Normal
[2017-09-08] MEDS: INSULIN REGULAR 100 UNIT/ML SUBCUT SCH ×3 (05:48→17:18)
[2017-09-08] MEDS ORDERED: POTASSIUM CHLORIDE RIDER 10 MEQ in PREMIX 1 EACH IV PRN (06:00)
[2017-09-08] MEDS ORDERED: POTASSIUM CHLORIDE INJ 50 MEQ in SODIUM CHLORIDE 0.9% 475 ML IV SCH (06:00)
[2017-09-08] MEDS ORDERED: MAGNESIUM SULF RIDER 2 GM in PREMIX 1 EACH IV ONE (07:12)
[2017-09-08] MEDS: methylPREDNISolone SOD SUC 40 MG/1 ML VIAL IV SCH (09:38)
[2017-09-08] MEDS: POTASSIUM CHLORIDE 20 MEQ TABLET PO SCH (09:40)
[2017-09-08] MEDS: APIXABAN 2.5 MG TABLET PO SCH ×2 (09:40→20:48)
[2017-09-08] MEDS: AMIODARONE 200 MG TABLET PO SCH ×2 (09:40→20:49)
[2017-09-08] MEDS: DILTIAZEM 60 MG TABLET PO SCH ×3 (09:40→20:48)
[2017-09-08] MEDS: FUROSEMIDE 40 MG TABLET PO SCH ×2 (09:41→16:30)
[2017-09-08] MEDS: ASPIRIN CHEW 81 MG TABLET PO SCH (09:41)
[2017-09-08] MEDS: LANSOPRAZOLE ODT 30 MG TABLET NG SCH (09:41)
[2017-09-08] MEDS: METOPROLOL TARTRATE 50 MG TABLET PO SCH ×2 (09:43→20:49)
[2017-09-08] MEDS ORDERED: POTASSIUM CHLORIDE 20 MEQ TABLET PO ONE (11:00)
[2017-09-08 16:17] LABS: Calcium 7.7 MG/DL (8.5-10.1); Potassium 3.8 MMOL/L (3.5-5.1)
[2017-09-08] MEDS: INSULIN GLARGINE 100 UNIT/ML SUBCUT SCH (17:18)
[2017-09-08] MEDS: POTASSIUM CHLORIDE 20 MEQ TABLET PO PRN (18:21)
[2017-09-08] MEDS: ROSUVASTATIN 10 MG TABLET PO SCH (20:48)
[2017-09-09] MEDS: INSULIN REGULAR 100 UNIT/ML SUBCUT SCH ×4 (00:06→18:01)
[2017-09-09] MEDS: IPRATROPIUM 500 MCG/2.5 ML NEB RESP TX SCH ×4 (01:08→20:01)
[2017-09-09] MEDS: LEVALBUTEROL 1.25 MG/3 ML NEB RESP TX SCH ×4 (01:08→20:01)
[2017-09-09 03:38] LABS: ABG Base Excess 13.4 MMOL/L (-2.5-2.5); ABG HCO3 37.4 MMOL/L (20-26); ABG Oxygen Saturation 98.3 % (95-100); ABG PCO2 41.4 MM HG (35-48); ABG PH 7.566 (7.35-7.45); ABG TCO2 28.9 MMOL/L (23-27)
[2017-09-09] MEDS: LEVOFLOXACIN INJ 250 MG in PREMIX 1 EACH IV SCH (05:19)
[2017-09-09 05:28] LABS: Basophils # 0.1 10*3/uL (0.0-0.2); Basophils % 0.7 % (0.0-0.8); Immature Granulocytes % 0.9 %; Immature Granulocytes Absolute 0.14 #; Lymphocytes # 0.9 10*3/uL (1.4-4.0); Lymphocytes % 5.4 % (21.2-54.2); Mean Corpuscular HGB Conc 33.3 GM/DL (32-36); Mean Corpuscular Hemoglobin 29 PG (27-34); Mean Corpuscular Volume 88.3 FL (87-102); Mean Platelet Volume 11.3 FL (9.6-12.0); Monocytes # 2.2 10*3/uL (0.11-0.8); Monocytes % 13.5 % (1.7-12.7); Neutrophils # 13.1 10*3/uL (1.4-7.4); Neutrophils % 79.5 % (38.7-73.9); Platelet Count 180 T/CUMM (130-400); Red Blood Count 6.81 MC/CUMM (3.8-5.5); Red Cell Distribution Width 17.2 % (9.3-17.3); White Blood Count 16.5 T/CUMM (4-12)
[2017-09-09 05:30] LABS: Hematocrit 60.1 VOL% (42.0-52.0)
[2017-09-09] MEDS ORDERED: METOPROLOL TARTRATE 5 MG/5 ML VIAL IV ONE (05:30)
[2017-09-09 05:57] LABS: Calcium 7.7 MG/DL (8.5-10.1); Osmolality,Calculated 352.3 MOS/KG (273-304)
[2017-09-09] MEDS ORDERED: SODIUM CHLORIDE 0.9% 500 ML IV ONE (05:57)
[2017-09-09] MEDS ORDERED: SODIUM CHLORIDE 0.9% 1,000 ML IV SCH (06:00)
[2017-09-09 06:04] LABS: Prealbumin 18.7 MG/DL (20-40)
[2017-09-09] MEDS: DEXTROSE 5% 1,000 ML IV SCH ×2 (06:37→19:54)
[2017-09-09] MEDS: PROPOFOL 1,000 MG/100 ML BOTTLE IV SCH (07:29)
[2017-09-09] MEDS: methylPREDNISolone SOD SUC 40 MG/1 ML VIAL IV SCH (08:47)
[2017-09-09] MEDS: DILTIAZEM 60 MG TABLET PO SCH ×3 (08:48→20:56)
[2017-09-09] MEDS: APIXABAN 2.5 MG TABLET PO SCH ×2 (08:48→20:57)
[2017-09-09] MEDS: POTASSIUM CHLORIDE 20 MEQ TABLET PO SCH (08:48)
[2017-09-09] MEDS: LANSOPRAZOLE ODT 30 MG TABLET NG SCH (08:48)
[2017-09-09] MEDS: METOPROLOL TARTRATE 50 MG TABLET PO SCH ×2 (08:48→22:00)
[2017-09-09] MEDS: AMIODARONE 200 MG TABLET PO SCH ×2 (08:48→20:56)
[2017-09-09] MEDS: ASPIRIN CHEW 81 MG TABLET PO SCH (08:48)
[2017-09-09] MEDS: PHENYLEPHRINE DRIP 40 MG/250 ML PREMIX IV PRN ×3 (10:13→21:37)
[2017-09-09] MEDS ORDERED: SODIUM CHLORIDE 0.45% 1,000 ML IV ONE (13:17)
[2017-09-09] MEDS: INSULIN GLARGINE 100 UNIT/ML SUBCUT SCH (18:01)
[2017-09-09] MEDS: ROSUVASTATIN 10 MG TABLET PO SCH (20:56)
[2017-09-10] MEDS: INSULIN REGULAR 100 UNIT/ML SUBCUT SCH ×3 (00:11→13:54)
[2017-09-10] MEDS: LEVALBUTEROL 1.25 MG/3 ML NEB RESP TX SCH ×3 (00:30→13:37)
[2017-09-10] MEDS: IPRATROPIUM 500 MCG/2.5 ML NEB RESP TX SCH ×3 (00:30→13:37)
[2017-09-10] MEDS: PHENYLEPHRINE DRIP 40 MG/250 ML PREMIX IV PRN ×5 (02:26→13:47)
[2017-09-10 04:00] LABS: ABG Base Excess 8.6 MMOL/L (-2.5-2.5); ABG HCO3 32.3 MMOL/L (20-26); ABG Oxygen Saturation 97.3 % (95-100); ABG PCO2 38.5 MM HG (35-48); ABG PH 7.527 (7.35-7.45); ABG PO2 92.6 MM HG (80-95)
[2017-09-10] MEDS: LEVOFLOXACIN INJ 250 MG in PREMIX 1 EACH IV SCH (04:21)
[2017-09-10] MEDS ORDERED: ACETAMINOPHEN 325 MG TABLET PO PRN (04:28)
[2017-09-10] MEDS ORDERED: DILTIAZEM INJ 100 MG in SODIUM CHLORIDE 0.9% 100 ML IV SCH (04:30)
[2017-09-10 06:28] LABS: Basophils % 0.3 % (0.0-0.8); Eosinophils # 0.1 10*3/uL (0.0-0.87); Eosinophils % 0.4 % (0.00-10.9); Hematocrit 52.3 VOL% (42.0-52.0); Hemoglobin 17.1 GM/DL (14.0-18.0); Immature Granulocytes % 1.4 %; Immature Granulocytes Absolute 0.17 #; Lymphocytes # 0.6 10*3/uL (1.4-4.0); Lymphocytes % 5.2 % (21.2-54.2); Mean Corpuscular HGB Conc 32.7 GM/DL (32-36); Mean Corpuscular Hemoglobin 30 PG (27-34); Mean Platelet Volume 11.9 FL (9.6-12.0); Monocytes # 2.2 10*3/uL (0.11-0.8); Monocytes % 17.9 % (1.7-12.7); NRBC # 0.32 10*3/uL; Neutrophils # 9.3 10*3/uL (1.4-7.4); Neutrophils % 74.8 % (38.7-73.9); Platelet Count 101 T/CUMM (130-400); Red Blood Count 5.75 MC/CUMM (3.8-5.5); Red Cell Distribution Width 16.3 % (9.3-17.3); White Blood Count 12.4 T/CUMM (4-12)
[2017-09-10 06:58] LABS: Lymphocytes 9 % (20-55); Nucleated Red Blood Cells 5 (0-5); Segmented Neutrophils 82 % (50-85); Total Cells Counted 100
[2017-09-10 06:59] LABS: Hypochromasia 1+; Microcytosis 1+
[2017-09-10 07:00] LABS: Platelet Estimate Decreased
[2017-09-10] MEDS: POTASSIUM CHLORIDE 20 MEQ TABLET PO SCH (08:19)
[2017-09-10] MEDS: AMIODARONE 200 MG TABLET PO SCH (08:19)
[2017-09-10] MEDS: methylPREDNISolone SOD SUC 40 MG/1 ML VIAL IV SCH (08:19)
[2017-09-10] MEDS: DILTIAZEM 60 MG TABLET PO SCH (08:20)
[2017-09-10] MEDS: ASPIRIN CHEW 81 MG TABLET PO SCH (08:20)
[2017-09-10] MEDS: LANSOPRAZOLE ODT 30 MG TABLET NG SCH (08:20)
[2017-09-10] MEDS: APIXABAN 2.5 MG TABLET PO SCH (08:21)
[2017-09-10] MEDS: METOPROLOL TARTRATE 50 MG TABLET PO SCH (08:26)
[2017-09-10 08:29] LABS: Calcium 6.7 MG/DL (8.5-10.1); Potassium 5.4 MMOL/L (3.5-5.1)
[2017-09-10] MEDS ORDERED: NOREPINEPHRINE 4 MG/4 ML VIAL IV ONE (10:17)
[2017-09-10] MEDS: NOREPINEPHRINE 8 MG in SODIUM CHLORIDE 0.9% 242 ML IV PRN ×2 (10:20→11:56)
[2017-09-10] MEDS: DEXTROSE 5% 1,000 ML IV SCH ×2 (10:45→17:40)
[2017-09-10] MEDS ORDERED: AMIODARONE 150 MG/3 ML VIAL ONE ×2 (10:47→10:49)
[2017-09-10] MEDS ORDERED: AMIODARONE INJ 450 MG in DEXTROSE 5% 241 ML IV SCH ×2 (11:00→17:00)
[2017-09-10] MEDS ORDERED: DIGOXIN 0.5 MG/2 ML AMP IV ONE (12:03)
[2017-09-10] MEDS ORDERED: DIGOXIN 0.5 MG/2 ML AMP ONE (12:04)
[2017-09-10] MEDS ORDERED: ATROPINE 1 MG/10 ML SYRINGE IV ONE ×3 (12:12→12:34)
[2017-09-10] MEDS ORDERED: SODIUM BICARBONATE 50 MEQ/50 ML SYRINGE IV ONE (12:13)
[2017-09-10] MEDS ORDERED: VANCOMYCIN INJ 1,250 MG in SODIUM CHLORIDE 0.9% 250 ML IV PRN (12:40)
[2017-09-10] MEDS ORDERED: VANCOMYCIN INJ 1,500 MG in SODIUM CHLORIDE 0.9% 500 ML IV ONE (13:00)
[2017-09-10] MEDS ORDERED: EPINEPHrine 1 MG/10 ML SYRINGE IV ONE (13:06)
[2017-09-10] MEDS ORDERED: EPINEPHrine 1 MG/ML VIAL ONE (13:14)
[2017-09-10] MEDS ORDERED: EPINEPHRINE IV PRN (13:17)
[2017-09-10] MEDS ORDERED: SODIUM CHLORIDE 0.9% IV PRN (13:17)
[2017-09-10 13:18] LABS: ABG Base Excess -1.3 MMOL/L (-2.5-2.5); ABG HCO3 27.1 MMOL/L (20-26); ABG Oxygen Saturation 95.9 % (95-100); ABG PCO2 58.5 MM HG (35-48); ABG PH 7.284 (7.35-7.45); ABG PO2 100.1 MM HG (80-95); ABG TCO2 28.9 MMOL/L (23-27)
[2017-09-10] MEDS ORDERED: SODIUM CHLORIDE 0.9% 1,000 ML IV ONE (13:19)
[2017-09-10] MEDS ORDERED: DEXTROSE 5% 1,000 ML IV SCH (13:30)
[2017-09-10 13:54] LABS: Alanine Aminotransferase 585 U/L (16-61); Albumin 1.6 G/DL (3.4-5.0); Alkaline Phosphatase 92 U/L (45-117); Aspartate Amino Transferase 803 U/L (0-37); Blood Urea Nitrogen 160 MG/DL (7-18); Calcium 6.4 MG/DL (8.5-10.1); Glucose 55 MG/DL (74-106); Osmolality,Calculated 351.7 MOS/KG (273-304); Sodium 152 MMOL/L (136-145)
[2017-09-10 13:57] LABS: Potassium 6.6 MMOL/L (3.5-5.1)
[2017-09-10] MEDS ORDERED: SODIUM POLYSTYRENE SULFATE 15 GM/60 ML BOTTLE PO ONE (13:58)
[2017-09-10] MEDS ORDERED: PIPERACILLIN/TAZOBACTAM 3,375 MG in SODIUM CHLORIDE 0.9% 100 ML IV SCH (14:00)
[2017-09-10] MEDS ORDERED: INSULIN REGULAR 100 UNIT/ML IV ONE (14:31)
[2017-09-10] MEDS ORDERED: CALCIUM CHLORIDE 1,000 MG/10 ML SYRINGE IV ONE ×2 (14:51→14:55)
[2017-09-10 15:11] LABS: ABG Base Excess -11.1 MMOL/L (-2.5-2.5); ABG Oxygen Saturation 86.4 % (95-100); ABG PO2 77.5 MM HG (80-95); ABG TCO2 23.3 MMOL/L (23-27); Hemoglobin Heart Surgery 19.1 G/DL (14.0-18.0)
[2017-09-10 15:12] LABS: ABG PH 7.076 (7.35-7.45)
[2017-09-10 15:13] LABS: ABG PCO2 73.2 MM HG (35-48); Potassium Heart/CVR 7.8 MMOL/L (3.5-5.1)
[2017-09-10 15:19] LABS: Glucose Heart Surgery 18 MG/DL (74-106)
[2017-09-10] MEDS ORDERED: VASOPRESSIN 100 UNITS in SODIUM CHLORIDE 0.9% 95 ML IV SCH (15:30)
[2017-09-10 17:10] VITALS: BP 47/26
[2017-09-10] MEDS: INSULIN GLARGINE 100 UNIT/ML SUBCUT SCH (17:41)
[2017-09-10] MEDS ORDERED: APIXABAN 2.5 MG TABLET PO SCH (21:00)
== END 2017-09-10 15:17 | disposition expired | DRG 291 ==
LOC: N.ED 22:00 → N.EDINP 09-02 00:29 → N.CC 09-02 02:01
PROVIDERS: ADMIT Internal Medicine Cardiovascular Disease; ATTEND Internal Medicine Cardiovascular Disease